=== PATIENT | male | born 2000 | race Caucasian/White ===

== ENCOUNTER 2021-03-24 15:59 | Outpatient (REF) | payer SELFPAY | END 2021-03-24 16:00 | disposition home or self-care (01) | LOC: HO.LAB 15:59 | PROVIDERS: Visit Provider Internal Medicine | DX: Z13.89 Encounter for screening for other disorder (principal) ==

== ENCOUNTER 2022-07-03 03:44 | Emergency (ER) | payer OTHER, SELFPAY ==
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
[2022-07-03 03:55] VITALS: BP 129/55; PULSE 113; PULSE 143; RESP 16; TEMP 37; O2SAT 92; O2SAT 97; BMI 22.3
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
[2022-07-03 09:24] VITALS: BP 102/56; PULSE 82; RESP 12; TEMP 37.2; O2SAT 99
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
== END 2022-07-03 10:05 | disposition home or self-care (01) ==
PROVIDERS: Emergency Provider Emergency Medicine; PCP Pediatrics
DX: S02.40DA Maxillary fracture, left side, initial encounter for closed fracture (principal); R51.9 Headache, unspecified; M54.2 Cervicalgia; Y04.2XXA Assault by strike against or bumped into by another person, initial encounter; Y93.9 Activity, unspecified; Y92.410 Unspecified street and highway as the place of occurrence of the external cause; Y99.9 Unspecified external cause status
CPT/HCPCS: 70450; 70486; 72125; 99284

== ENCOUNTER 2023-09-04 16:40 | Emergency (ER) | payer OTHER, SELFPAY ==
--- NOTE | ~2023-09-04 | XR_ITS ---
EXAMINATION: X-RAY LEFT ANKLE AND LEFT FOOT CLINICAL INDICATION: Pain after skiing. COMPARISON: None. TECHNIQUE: 2 views of the left ankle and 3 views of the left foot. FINDINGS: No acute fracture or subluxation. No unexpected radiopaque foreign bodies. Normal soft tissues. XR/XR ankle LT min 3V IMPRESSION: Normal radiographic examination of the left ankle and left foot.
--- NOTE | ~2023-09-04 | XR_ITS ---
EXAMINATION: X-RAY LEFT ANKLE AND LEFT FOOT CLINICAL INDICATION: Pain after skiing. COMPARISON: None. TECHNIQUE: 2 views of the left ankle and 3 views of the left foot. FINDINGS: No acute fracture or subluxation. No unexpected radiopaque foreign bodies. Normal soft tissues. XR/XR foot LT 2V IMPRESSION: Normal radiographic examination of the left ankle and left foot.
--- NOTE | ~2023-09-04 | XR_ITS ---
EXAMINATION: XR KNEE, LEFT CLINICAL INFORMATION: Lateral knee pain after skiing. COMPARISON: None available. TECHNIQUE: Four views of the left knee. FINDINGS: No fracture or joint effusion. Alignment is anatomic. Joint spaces are maintained. No abnormal soft tissue calcification. XR/XR knee LT 3V IMPRESSION: Normal left knee.
[2023-09-04 17:23] VITALS: BP 128/76; PULSE 74; RESP 16; TEMP 36.6; O2SAT 99; BMI 28.3
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
== END 2023-09-04 19:31 | disposition home or self-care (01) ==
PROVIDERS: Emergency Provider Internal Medicine
DX: S83.92XA Sprain of unspecified site of left knee, initial encounter (principal); Y93.23 Activity, snow (alpine) (downhill) skiing, snowboarding, sledding, tobogganing and snow tubing; Y92.89 Other specified places as the place of occurrence of the external cause; Y99.9 Unspecified external cause status; M25.562 Pain in left knee; M25.572 Pain in left ankle and joints of left foot
CPT/HCPCS: 73562; 73610; 73620; 99282; 99283

== ENCOUNTER 2024-03-22 00:07 | Emergency (ER) | payer OTHER, SELFPAY ==
[2024-03-22 00:13] VITALS: BP 123/57; PULSE 82; RESP 18; TEMP 37.1; O2SAT 96; BMI 28.9
--- NOTE | 2024-03-22 00:33 | ED.SKABFB ---
HPI - Skin/Abscess/Foreign Bdy General Chief complaint: Skin/Abscess/Foreign Body Stated complaint: cyst/abscess? Time Seen by Provider: 03/22/24 00:21 Source: patient Mode of arrival: ambulatory Limitations: no limitations History of Present Illness ED Provider: Dr. Paula Davenport HPI narrative: Patient comes emergency room complaining of an abscess and cellulitis in the inner aspect of the left eye. Patient states that for 3 days he has been seeing that erythema keeps spreading. Patient denies fever chills. Patient tried popping the pimple, was able to express pus Related Data Previous Rx's ?Medication ?Instructions ?Recorded amoxicillin 875 mg-potassium 1 tab PO Q12H #20 tabs 07/03/22 clavulanate 125 mg tablet cephalexin 500 mg capsule 500 mg PO BID #14 caps 03/22/24 doxycycline hyclate 100 mg capsule 100 mg PO BID #14 caps 03/22/24 ibuprofen 600 mg tablet 600 mg PO TID PRN fever or pain 03/22/24 #14 tabs Allergies Allergy/AdvReac Type Severity Reaction Status Date / Time No Known Allergies Allergy Verified 03/22/24 00:14 [No Known Allergies*] Review of Systems Review of Systems: Constitutional : No Weight loss, No Fever, No Chills, No Night Sweats, No Fatigue, No Malaise ENT/Mouth : No Hearing loss, No Ear Pain, No Nasal Congestion, No Sinus Pain, No Hoarseness, No sore throat, No Rhinorrhea, No Swallowing Difficulty Eyes: No Eye Pain, No Swelling, No Redness, No Foreign Body, No Discharge, No Vision Changes Cardiovascular : No Chest Pain, No SOB, No Dyspnea on Exertion, No Orthopnea, No Edema, No Palpitations Respiratory : No Cough, No Sputum, No Wheezing, No Smoke Exposure, No Dyspnea Gastrointestinal : No Nausea, No Vomiting, No Diarrhea, No Constipation, No abdominal Pain, No Hematochezia, No Melena Genitourinary : no irregular bleeding, No Dysuria, No Urinary Frequency, No Hematuria, No Urinary Incontinence, No Urgency, No Flank Pain, No Urinary Flow Changes, No Hesitancy Musculoskeletal : No joint pain, No Myalgias, No Joint Swelling Skin : Complaining of skin erythema and an infected pimple on the inner aspect of the left Neuro : No Weakness, No Numbness, No Paresthesias, No Loss of Consciousness, No Dizziness, No Headache Psych : No Anxiety/Panic, No Depression, No SI/HI/AH/VH, No Social Issues, Heme/Lymph: No Bruising, No Bleeding,No Lymphadenopathy Endocrine : No Polyuria, No Polydipsia, No Temperature Intolerance Physical Exam Vital Signs: Vital Signs: Last Vital Signs Temp 98.8 F 03/22/24 00:13 Pulse 82 03/22/24 00:13 Resp 18 03/22/24 00:13 BP 123/57 L 03/22/24 00:13 Pulse Ox 96 03/22/24 00:13 O2 Del Method Room Air 03/22/24 00:13 BMI result Body Mass Index 28.9 Const: Other: Appearance: Alert. Oriented X3. No acute distress. Eyes: Pupils equal, round and reactive to light. ENT: Pharynx normal. Neck: Normal inspection. Neck supple. No lymph nodes noted. No crepitus CVS: Normal heart rate and rhythm. Pulses normal. Normal S1 and S2 Respiratory: No respiratory distress. Breath sounds normal. No Wheezing. No rales Abdomen: Soft and nontender. No rigidity. No distention. Skin: Skin warm and dry. Normal skin color. Normal skin turgor. On the left inner thigh, there are 2 pimples, 1 is already healing, 1 is covered by an eschar and has surrounding erythema Extremities: No lower extremity edema. No Lacerations. No Rash Neuro: Oriented X 3. No motor deficit. No sensory deficit. Moving all extremities. No slurred speech. CN 2 through 12 grossly intact Psych: calm, cooperative, normal affect Medical Decision Making Medical Decision Making MDM Narrative: With an 18 gauge needle, the eschar was on pathak, small amount of pus was expressed. Patient's swelling or erythema. -patient was given the 1st dose of antibiotics here in the emergency room, doxycycline and Keflex Discharge Plan Discharge Clinical Impression: Cellulitis Patient Disposition: Home, Self-Care Instructions: Cellulitis (ED), Warm Compress or Soak (ED) Additional Instructions: Please follow-up with your primary care physician tomorrow. If you have any worsening or new symptoms, please return to the emergency room or call 911 Prescriptions: New cephalexin 500 mg capsule 500 mg PO BID Qty: 14 0RF doxycycline hyclate 100 mg capsule 100 mg PO BID Qty: 14 0RF ibuprofen 600 mg tablet 600 mg PO TID PRN (Reason: fever or pain) Qty: 14 0RF No Action amoxicillin-pot clavulanate 875-125 mg tablet 1 tab PO Q12H Qty: 20 0RF Print Language: Citizen [place]
[2024-03-22] MEDS: Doxycycline Monohydrate 100 MG CAPSULE PO (00:55)
[2024-03-22] MEDS: cephALEXin 500 MG CAPSULE PO (00:55)
[2024-03-22 01:37] VITALS: BP 110/68; PULSE 69; RESP 18; TEMP 37.1; O2SAT 97
== END 2024-03-22 00:57 | disposition home or self-care (01) ==
PROVIDERS: Emergency Provider Emergency Medicine
DX: H05.012 Cellulitis of left orbit (principal); H44.002 Unspecified purulent endophthalmitis, left eye
CPT/HCPCS: 99283

== ENCOUNTER 2024-12-27 08:42 | Day surgery (SDC) | payer SELFPAY ==
[2024-12-27] VITALS (12 sets, daily range): BP systolic 101–142; BP diastolic 38–78; PULSE 57–107; RESP 15–20; TEMP 36–36.9; O2SAT 93–98; BMI 26.7
--- NOTE | ~2024-12-27 | US_ITS ---
EXAMINATION: US SCROTUM WITH DOPPLER COMPLETE HISTORY: acute onset R sided testicular pain. COMPARISON: There are no prior studies for comparison. FINDINGS: Real-time grayscale ultrasound imaging of the scrotum was performed. RIGHT TESTICLE: The right testis measures 3.6 x 2.6 x 2.3 cm and demonstrates mildly heterogeneous echotexture. No masses are seen. No color or pulsed Doppler flow could be documented in the right testis. Findings are consistent with torsion. RIGHT EPIDIDYMIS: The right epididymis is enlarged and no vascular flow can be documented. Findings are consistent with torsion. LEFT TESTICLE: The left testis measures 3.7 x 1.6 x 2.2 cm and demonstrates normal homogeneous echotexture. No masses are seen. The left testis demonstrates normal color Doppler flow. LEFT EPIDIDYMIS: Normal in size, shape, and vascularity. VARICOCELE: None. HYDROCELE: No significant hydrocele is seen. OTHER COMMENTS: None. US/US scrotum doppler IMPRESSION: Findings consistent with torsion of the right testis and epididymis without documented vascular flow. Findings were discussed with TEGAN Watts in the emergency room on 12/27/2024 at 10:16 AM. Electronically signed by: Mil Sales MD 12/27/2024 10:19 AM EDT
--- NOTE | ~2024-12-27 | US_ITS ---
EXAMINATION: US SCROTUM WITH DOPPLER COMPLETE HISTORY: acute onset R sided testicular pain. COMPARISON: There are no prior studies for comparison. FINDINGS: Real-time grayscale ultrasound imaging of the scrotum was performed. RIGHT TESTICLE: The right testis measures 3.6 x 2.6 x 2.3 cm and demonstrates mildly heterogeneous echotexture. No masses are seen. No color or pulsed Doppler flow could be documented in the right testis. Findings are consistent with torsion. RIGHT EPIDIDYMIS: The right epididymis is enlarged and no vascular flow can be documented. Findings are consistent with torsion. LEFT TESTICLE: The left testis measures 3.7 x 1.6 x 2.2 cm and demonstrates normal homogeneous echotexture. No masses are seen. The left testis demonstrates normal color Doppler flow. LEFT EPIDIDYMIS: Normal in size, shape, and vascularity. VARICOCELE: None. HYDROCELE: No significant hydrocele is seen. OTHER COMMENTS: None. US/US scrotum IMPRESSION: Findings consistent with torsion of the right testis and epididymis without documented vascular flow. Findings were discussed with TEGAN Watts in the emergency room on 12/27/2024 at 10:16 AM. Electronically signed by: Mil Sales MD 12/27/2024 10:19 AM EDT
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
[2024-12-27 09:06] LABS: MANUAL DIFF FLAG NO
[2024-12-27 09:10] LABS: Basophils Percent Auto 0.4 % (0-2); Eosinophils Absolute Auto 0.3 X10*3/uL (0.0-0.4); Eosinophils Percent Auto 3.8 % (0-4); Hematocrit 42.5 % (42.0-52.0); Hemoglobin 14.7 g/dl (14.0-18.0); Imm Gran Abs Auto 0.01 X10*3/uL (0.00-0.03); Imm Gran Pct Auto 0.1 % (0.0-0.4); Lymphocytes Absolute Auto 2.3 X10*3/uL (1.2-4.9); Mean Corpuscular HGB Conc 34.6 g/dl (31.0-36.0); Mean Corpuscular Hemoglobin 29.4 pg (27.0-33.0); Mean Platelet Volume 9.9 fL (9.4-12.4); Monocytes Absolute Auto 0.9 X10*3/uL (0.1-1.2); Monocytes Percent Auto 10.7 % (2-11); Neutrophils Absolute Auto 4.6 x10*3/uL (2.0-8.3); Platelet Count 203 X10*3/uL (160-400); Red Cell Distribution Width 12.8 % (11.0-16.0); White Blood Count 8.1 X10*3/uL (4.8-10.8)
--- NOTE | 2024-12-27 09:20 | ED.MALEGU ---
HPI - Male Genitourinary General Chief complaint: Urogenital-Male Stated complaint: Torsion Time Seen by Provider: 12/27/24 08:55 Source: patient Mode of arrival: ambulatory Limitations: no limitations History of Present Illness ED Provider: CHAYA GAONA PA-C HPI Narrative: 24-year-old male with pmhx significant for cryptorchidism presents to the ED today for evaluation of acute onset right testicular pain at 0800 this morning. He states pain began while he was lying in bed on his left side. Pain has been severe since onset and will radiate up into his abdomen. No history of similar. No urinary sx. No vomiting. Patient tells me he has a history of undescended testicles . Denies ever having a procedure such as orchiopexy to correct this. Related Data Previous Rx's ?Medication ?Instructions ?Recorded amoxicillin 875 mg-potassium 1 tab PO Q12H #20 tabs 07/03/22 clavulanate 125 mg tablet cephalexin 500 mg capsule 500 mg PO BID #14 caps 03/22/24 doxycycline hyclate 100 mg capsule 100 mg PO BID #14 caps 03/22/24 ibuprofen 600 mg tablet 600 mg PO TID PRN fever or pain 03/22/24 #14 tabs Allergies Allergy/AdvReac Type Severity Reaction Status Date / Time No Known Allergies Allergy Verified 12/27/24 08:49 [No Known Allergies*] Review of Systems Review of Systems: Yes all other systems are reviewed and are negative PMFSH Past Medical History Attestation statement: The following information was validated with the patient. Source: old records reviewed and nursing notes reviewed Medical History (Updated 12/27/24 @ 11:05 by Katerina Botello RN) Hypospadias Surgical History (Updated 12/27/24 @ 11:03 by Katerina Botello RN) H/O wisdom tooth extraction Social History Social History Alcohol intake: current Alcohol intake frequency: 0-2 drinks per day Alcohol type: hard liquor Comment: Dr. Franklin Patient Tobacco Use Status: Current everyday Tobacco user Substance Use Type: Marijuana Physical Exam Vital Signs: Vital Signs: Last Vital Signs Temp 97.4 F 12/27/24 11:09 Pulse 57 12/27/24 11:09 Resp 16 12/27/24 11:09 BP 111/61 12/27/24 11:09 Pulse Ox 98 12/27/24 11:09 O2 Del Method Room Air 12/27/24 11:09 BMI result Body Mass Index 26.7 Hypertensive, vitals otherwise WNL. Afebrile. General: Uncomfortable appearing, in squatting position on bed Skin: Warm, dry, intact. No rashes or lesions. Head: Normocephalic, atraumatic. EENT: Hearing is intact b/l. Conjunctiva clear. PERRLA. EOM intact. Moist mucous membranes.? Cardiac: Chest wall symmetric. RRR Lungs: Normal respiratory effort without accessory muscle use. CTA bilaterally Abdomen: Soft, non-tender, non-distended. No rebound tenderness or guarding. Positive BS x4. : +high-riding right testicle, firm to palpation. Extremely tender to palpation. Palpating right testicle and uses pain to abdomen. Left testicle appears hypoplastic, smaller than right. Ext: Upper and lower extremities atraumatic, without tenderness, deformity, swelling or erythema Neuro: AOx3. Normal speech. Ambulating with steady gait. Psych: Appropriate mood and affect. Responds appropriately to questions. Course Course Course Narrative: 1028 -- CBC without leukocytosis or left shift. No anemia. H&H stable. Chemistry without acute electrolyte abnormality requiring intervention. BUN slightly elevated to 21 with normal creatinine. Normal liver function. Urinalysis and CT/NG testing pending. > I was called to bedside by archives technician for concern of torsion. She did not appreciate any blood flow to the right testes when compared to the left. I did inform my attending Dr. Gardner. You have both evaluated patient at bedside. My attending attempted to de torso testes however was concerned that the cord still felt twisted. Repeat ultrasound performed, still no blood flow to right testes. I expedited ultrasound read. I discussed with radiologist, Dr. Sales who states that both right testes and right epididymis are torsed. I reached out to Dr. Nation who will be taking patient to OR for de-torsion. Patient is agreeable. > patient reported brief resolution of pain after receiving morphine. Pain has now returned. Dilaudid and Zofran ordered. Medications Administered Discontinued Medications Generic Name Dose Route Start Last Admin Trade Name Freq PRN Reason Stop Dose Admin Hydromorphone HCl 0.5 mg 12/27/24 10:22 12/27/24 10:35 Hydromorphone Hcl 0.5 Mg/0.5 Ml Syringe IVPUSH 12/27/24 10:23 0.5 mg ONCE ONE Administration Protocol Morphine Sulfate 4 mg 12/27/24 09:21 12/27/24 09:30 Morphine Sulfate 4 Mg/Ml Cartridge IVPUSH 12/27/24 09:22 4 mg ONCE ONE Administration Protocol Ondansetron HCl 4 mg 12/27/24 10:27 12/27/24 10:35 Ondansetron Hcl 4 Mg/2 Ml Vial IVPUSH 12/27/24 10:28 4 mg ONCE ONE Administration Medical Decision Making Medical Decision Making [facility] Narrative: 24-year-old male with pmhx significant for cryptorchidism presents to the ED today for evaluation of acute onset right testicular pain at 0800 this morning. Hypertensive, vitals otherwise WNL. He is extremely uncomfortable appearing, squatting on the bed on my initial examination. On exam, high-riding right testicle, firm to palpation. Extremely tender to palpation. Palpating right testicle and uses pain to abdomen. Left testicle appears hypoplastic, smaller than right. Differential diagnosis includes testicular torsion, orchitis, epididymitis, hernia, urinary tract infection, STD Plan for basic labs, UA, CT/NG, testicular ultrasound, pain control and re-evaluation. Differential Diagnosis Differential Diagnoses: The differential diagnosis associated with the presentation includes as above. Admission/Observation Consideration of admission/observation: Escalation of care including admission/observation considered Patient will be admitted to urology service with plan for OR to detorse right testis Consult Healthcare Provider Management of the patient was discussed with: Full Service Vending Driver (urologist - dr. nation) Lab Data [facility] Lab Attestation statement: I reviewed the patient's lab results. as above. 12/27/24 09:02 12/27/24 09:02 Labs: Lab Results 12/27/24 Range/Units 09:02 WBC 8.1 (4.8-10.8) X10*3/uL RBC 5.00 (4.60-5.80) X10*6/uL Hgb 14.7 (14.0-18.0) g/dl Hct 42.5 (42.0-52.0) % MCV 85.0 (80.0-98.0) fL MCH 29.4 (27.0-33.0) pg MCHC 34.6 (31.0-36.0) g/dl RDW 12.8 (11.0-16.0) % Plt Count 203 (160-400) X10*3/uL MPV 9.9 (9.4-12.4) fL Immature Gran % (Auto) 0.1 (0.0-0.4) % Neut % (Auto) 57.0 (45-73) % Lymph % (Auto) 28.0 (20-40) % [place] % (Auto) 10.7 (2-11) % Eos % (Auto) 3.8 (0-4) % Baso % (Auto) 0.4 (0-2) % Lymph # (Auto) 2.3 (1.2-4.9) X10*3/uL [place] # (Auto) 0.9 (0.1-1.2) X10*3/uL Eos # (Auto) 0.3 (0.0-0.4) X10*3/uL Baso # (Auto) 0.0 (0.0-0.2) X10*3/uL Abs Immat Gran (auto) 0.01 (0.00-0.03) X10*3/uL Absolute Neuts (auto) 4.6 (2.0-8.3) x10*3/uL Absolute Nucleated RBC 0.000 (0.0-0.012) X10*3/uL Nucleated RBC % (auto) 0.0 (0.0-0.2) /100WBC Sodium 141 (135-145) mmol/L Potassium 3.9 (3.3-5.1) mmol/L Chloride 107 (96-108) mmol/L Carbon Dioxide 26 (22-29) mmol/L Anion Gap 12 (12-20) BUN 21 H (9-16) mg/dL Creatinine 0.88 (0.5-1.4) mg/dL Estim Creat Clear Calc 137.8 Estimated GFR > 60 Random Glucose 100 (60-115) mg/dL Calcium 9.2 (8.4-10.2) mg/dL Magnesium 1.9 (1.6-2.6) mg/dL Total Bilirubin 0.3 (0.0-1.0) mg/dL AST 20 (5-37) U/L ALT 22 (0-40) U/L Alkaline Phosphatase 61 (39-117) U/L Total Protein 7.2 (6.5-8.0) g/dL Albumin 4.4 (3.5-5.0) g/dL Independent Interpretation I performed an independent interpretation of an: Ultrasound Interpretation: US w/o arterial/ venous flow to R testicle Radiology Impression Discussion of test interpretation with radiology: I have reviewed the radiologist's reading. Radiologist Impression: Procedure(s): US scrotum doppler Accession Number(s): [id number] cc: Physician,None ; Chaya Gaona~ EXAMINATION: US SCROTUM WITH DOPPLER COMPLETE HISTORY: acute onset R sided testicular pain. COMPARISON: There are no prior studies for comparison. FINDINGS: Real-time grayscale ultrasound imaging of the scrotum was performed. RIGHT TESTICLE: The right testis measures 3.6 x 2.6 x 2.3 cm and demonstrates mildly heterogeneous echotexture. No masses are seen. No color or pulsed Doppler flow could be documented in the right testis. Findings are consistent with torsion. RIGHT EPIDIDYMIS: The right epididymis is enlarged and no vascular flow can be documented. Findings are consistent with torsion. LEFT TESTICLE: The left testis measures 3.7 x 1.6 x 2.2 cm and demonstrates normal homogeneous echotexture. No masses are seen. The left testis demonstrates normal color Doppler flow. LEFT EPIDIDYMIS: Normal in size, shape, and vascularity. VARICOCELE: None. HYDROCELE: No significant hydrocele is seen. OTHER COMMENTS: None. US/US scrotum doppler IMPRESSION: Findings consistent with torsion of the right testis and epididymis without documented vascular flow. Findings were discussed with TEGAN Watts in the emergency room on 12/27/2024 at 10:16 AM. Prescription Management I considered prescription management with: Pain Medication Social Determinants Patient?s care significantly limited by Social Determinants of Health including: Other Social Determinant of Health Critical Care Time Critical Care Time Critical Care Time: Yes Total Critical Care Time: 40 Attestation: Critical care time in the amount of 40 minutes has been provided to the patient in terms of direct patient care, frequent reevaluation, consultation with urologist, review and interpretation of medical data and results, and management of potentially life-threatening conditions. This is all outside of any medical procedures. Discharge Plan Discharge Clinical Impression: Right testicular torsion Patient Disposition: Admitted As Inpatient Interventions: Admission Worksheet (ED) Last Done: 12/27/24 10:54 Discharge Date/Time: 12/27/24 10:54
[2024-12-27 09:26] LABS: Alanine Aminotransferase 22 U/L (0-40); Albumin Level 4.4 g/dL (3.5-5.0); Alkaline Phosphatase 61 U/L (39-117); Anion Gap 12 (12-20); Aspartate Amino Transferase 20 U/L (5-37); Bilirubin Total 0.3 mg/dL (0.0-1.0); Blood Urea Nitrogen 21 mg/dL (9-16); Calcium 9.2 mg/dL (8.4-10.2); Carbon Dioxide 26 mmol/L (22-29); Chloride 107 mmol/L (96-108); Creatinine Clr Calc Pharmacy 137.8; Estimated Glomerular Filt Rate > 60; Glucose Random 100 mg/dL (60-115); Magnesium 1.9 mg/dL (1.6-2.6); Potassium 3.9 mmol/L (3.3-5.1); Sodium 141 mmol/L (135-145); Total Protein 7.2 g/dL (6.5-8.0)
[2024-12-27] MEDS: Morphine Sulfate 4 MG/ML CARTRIDGE IVPUSH (09:30)
[2024-12-27] MEDS: ondansetron HCL 4 MG/2 ML VIAL IVPUSH (10:35)
[2024-12-27] MEDS: HYDROmorphone HCl 0.5 MG/0.5 ML SYRINGE IVPUSH (10:35)
--- NOTE | 2024-12-27 10:51 | P.CNUR_ITS ---
History of Present Illness Consult details Consult date: 12/27/24 Narrative: CC: Testicular torsion 24-year-old male presents to emergency room with right onset testicular pain starting at 08:00 no prior history Extremely comfortable on exam Believes he may have had a prior cryptorchism with an orchidopexy as a child Hypoplastic left testicle on exam with high-riding right testicle Ultrasound no flow appreciated to right testicle Recommend operative exploration with orchidopexy right side Review of Systems 2 Constitutional: Constitutional: Reports as per HPI and Reports no additional constitutional complaints Cardiovascular: Cardiovascular: Reports as per HPI and Reports no additional cardiovascular complaints Respiratory: Respiratory: Reports as per HPI and Reports no additional respiratory complaints Gastrointestinal: Gastrointestinal: Reports as per HPI and Reports no additional gastrointestinal complaints Genitourinary: Genitourinary: Reports as per HPI Musculoskeletal: Musculoskeletal: Reports no additional musculoskeletal complaints and Reports as per HPI Neurologic: Reports system reviewed and no additional complaints, except as documented and Reports as per HPI [facility] Social History Social History Alcohol intake: current Alcohol intake frequency: 0-2 drinks per day Alcohol type: hard liquor Smoked in Last 30 Days: Yes Use of substances other than those prescribed or required for medical reasons: Yes Substance Use Type: Marijuana Advance Directives: No Advance Directives Information Provided: Yes Meds Allergies Allergy/AdvReac Type Severity Reaction Status Date / Time No Known Allergies Allergy Verified 12/27/24 08:49 [No Known Allergies*] Physical Exam 2 Vital Signs: Vital Signs: Last Vital Signs Temp 96.8 F 12/27/24 09:13 Pulse 78 12/27/24 09:13 Resp 20 12/27/24 10:35 BP 142/75 H 12/27/24 09:13 Pulse Ox 96 12/27/24 09:13 O2 Del Method Room Air 12/27/24 09:13 BMI result Body Mass Index 26.7 Const: General: cooperative, healthy appearing, comfortable and no acute distress Orientation/consciousness: patient oriented x3 HEENT: Face and sinus: Yes normal facial exam Mouth: moist mucous membranes Neck: Neck: Yes normal visual inspection, Yes full ROM and Yes trachea midline Chest: Chest palpation & inspection: normal inspection of the chest Resp: Effort & Inspection: normal respiratory effort, able to speak in complete sentences and no respiratory distress GI: Inspection: Yes normal to inspection Back/Spine/Pelvis: Cervical Spine: normal cervical lordosis Thoracic/Lumbar Spine: thoracic and lumbar spine normal to inspection Skin: General skin exam: no rashes or lesions noted Neuro: General: patient oriented x3, tone normal and moves all extremities Extrem: General: Yes normal to inspection and Yes capillary refill normal Results Labs 12/27/24 09:02 12/27/24 09:02 Labs: Abnormal lab results 12/27/24 Range/Units 09:02 BUN 21 H (9-16) mg/dL Short CBC 12/27/24 Range/Units 09:02 WBC 8.1 (4.8-10.8) X10*3/uL Hgb 14.7 (14.0-18.0) g/dl Hct 42.5 (42.0-52.0) % Plt Count 203 (160-400) X10*3/uL BMP 12/27/24 09:02 Sodium 141 Potassium 3.9 Chloride 107 Carbon Dioxide 26 BUN 21 H Creatinine 0.88 Calcium 9.2 Liver Function 12/27/24 Range/Units 09:02 Total Bilirubin 0.3 (0.0-1.0) mg/dL AST 20 (5-37) U/L ALT 22 (0-40) U/L Alkaline Phosphatase 61 (39-117) U/L Albumin 4.4 (3.5-5.0) g/dL All other labs normal. Assessment and Plan (1) Right testicular torsion: Status: Acute Plan Risks, benefits and alternatives to therapy were discussed. These include but are not limited to infection, bleeding, damage to local organs and tissues, need for further interventions. Anesthetic risks regarding cardiac arrhythmia, blood clots, and potential mortality were discussed. The patient understands the typical recovery time and the outpatient nature of the procedure. After consideration of these risks the patient gives full informed consent and they wish to move ahead with the procedure. - scrotal exploration with right testicular orchidopexy Procedures Date of Service Date of Service: 12/27/24
--- NOTE | 2024-12-27 11:10 | PC.NURSE ---
20g left ac 20g patent asymptomatic.
--- NOTE | 2024-12-27 11:54 | P.CONAN_ITS ---
HPI - Anesthesia Eval Consult details Narrative: testicular torsion PMFSH Active Problems Active Problems: All Active Problems Right testicular torsion (Acute) Past Medical History Medical History Hypospadias Family History Family history of problems with anesthesia: No Surgical History Surgical History H/O wisdom tooth extraction History of Problems with Anesthesia: No Social History Social History Alcohol intake: current Alcohol intake frequency: 0-2 drinks per day Alcohol type: hard liquor Comment: Dr. Franklin Patient Tobacco Use Status: Current everyday Tobacco user Substance Use Type: Marijuana Meds Allergies Allergy/AdvReac Type Severity Reaction Status Date / Time No Known Allergies Allergy Verified 12/27/24 08:49 [No Known Allergies*] Exam Height,Weight and Vital Signs: Height 5 ft 11 in Weight 86.8 kg Last Vital Signs Temp 97.4 F 12/27/24 11:09 Pulse 57 12/27/24 11:09 Resp 16 12/27/24 11:09 BP 111/61 12/27/24 11:09 Pulse Ox 98 12/27/24 11:09 O2 Del Method Room Air 12/27/24 11:09 Pertinent Lab Results Pertinent Lab Results: Laboratory Tests 12/27/24 09:02 WBC 8.1 RBC 5.00 Hgb 14.7 Hct 42.5 MCV 85.0 MCH 29.4 MCHC 34.6 RDW 12.8 Plt Count 203 MPV 9.9 Immature Gran % (Auto) 0.1 Neut % (Auto) 57.0 Lymph % (Auto) 28.0 [place] % (Auto) 10.7 Eos % (Auto) 3.8 Baso % (Auto) 0.4 Lymph # (Auto) 2.3 [place] # (Auto) 0.9 Eos # (Auto) 0.3 Baso # (Auto) 0.0 Abs Immat Gran (auto) 0.01 Absolute Neuts (auto) 4.6 Absolute Nucleated RBC 0.000 Nucleated RBC % (auto) 0.0 Sodium 141 Potassium 3.9 Chloride 107 Carbon Dioxide 26 Anion Gap 12 BUN 21 H Creatinine 0.88 Estim Creat Clear Calc 137.8 Estimated GFR > 60 Random Glucose 100 Calcium 9.2 Magnesium 1.9 Total Bilirubin 0.3 AST 20 ALT 22 Alkaline Phosphatase 61 Total Protein 7.2 Albumin 4.4 Airway Mallampati Class: II TM Dist: >3cm Neck ROM: Full Heart: rrr Lungs: cta Assessment and Plan Assessment Anesthesia Assessment: Anesthesia Plan Discussed and Chart Reviewed Final Anesthetic Review Family History of Problems with Anesthesia: No History of Problems with Anesthesia: No NPO: Yes ASA Class: II (vapes nicotine ) Final Preanesthetic Review: No Changes in Pt Med Stat, Meds/Allgs Chart Reviewed, Consent Obtained/Reviewed and Anes Risks/Benef Reviewed Patient Risk: Low Procedure Risk: Low Anesthetic Plan Anesthetic Plan: GA Disposition: Standard PACU
--- NOTE | 2024-12-27 12:13 | MHC.SHP ---
Pre-Procedural Eval Section A - 24 Hr Update-Section A only Date of Service: 12/27/24 The patient is an INPATIENT: Yes Changes since office visit: No Cold of Flu in the past 2 weeks, No New Medical Problems, No Changes in Medication and No Patient answered all questions The patient has been examined within 24 hours of the surgical procedure. The History & Physical has been completed within 30 days and I have reviewed it.: Yes Section B - Complete if H&P > 30 days Chief Complaint: Torsion Details of Present Illness: right sided testicle torsion on US Relevant Family History (Specify if Yes): No Relevant Social History: None Present Medications: see Short Stay Collaborative assessment Medical History: No relevant PMH History of Previous Operations: No relevant previous surgery Allergies: Allergies Allergy/AdvReac Type Severity Reaction Status Date / Time No Known Allergies Allergy Verified 12/27/24 08:49 [No Known Allergies*] Review of Systems Sugical H&P ROS: Negative: Constitution, Cardiovascular, Respiratory, Neurological, Psychiatric, Hem-Onc, Allergic/Immunologic, Gastrointestinal, Genitourinary, Musculoskeletal, Integumentary, Endocrine and Eyes/Ears/Nose/Throat Exam Surgical H&P Exam: Normal: HEENT, Normal: Heart, Normal: Lungs, Normal: Extremities, Normal: Abdomen, Normal: Skin and Normal: Neurological Plan Diagnosis/Plan: Unchanged (scrotal exploration) I have reviewed the history and physical and performed a pertinent physical examination on my patient. No changes have occurred unless specified. Time Spent With Patient Time: Total time managing care of this patient today ____ minutes.
[2024-12-27] MEDS: ceFAZolin Sodium/Dextrose,Iso 2 GM/50 ML PIGGYBACK IV (12:30)
--- NOTE | 2024-12-27 19:16 | W.PM.OPN ---
Operative Note Operative Note Date of Service: 12/27/24 Narrative: PreOperative Diagnosis: Right testicular torsion Post Operative Diagnosis: Right testicular torsion Procedure: Scrotal exploration with detorsion right testicle and bilateral orchidopexy Surgeon: Dr Meliton Mchugh Anesthesia: Genital Indications for procedure: Right testicular torsion Torsion on ultrasound no flow Procedure: After informed consent was verified the patient was brought to the operating room and placed in a supine position. Anesthesia was administered per protocol. The patient was prepped and draped in a sterile fashion. Safety pause time-out was performed. Antibiotics being given. Midline incision marked at median raphe. Local anesthesia infiltrated subcutaneously. Incision made through skin and subcutaneous tissue. Sharp dissection taken down onto the right testicle. Right testicle was exposed and delivered. Testicle was blue consistent with 360 degree torsion. Initially testicle looked borderline viable. Testicle was released and covered with a warm sponge. Gradually it became pink and the venous congestion around the epididymis and in the cord veins decompressed. The testicle was placed back inside the sac. Three point fixation performed using 3-0 Vicryl. Medial, lateral, inferior components of the testicle were attached to the underlying tissue. Testicular sac was closed with running 3-0 Vicryl suture. Attention was then directed to the left side in a similar procedure was performed. Left side was delivered it had not been torsed. Was then pexed back into the tunic. Tunica vaginalis was then closed. A 2nd layer of subcutaneous tissue was closed using Vicryl. Interrupted chromic sutures were placed. Patient tolerated the procedure well was extubated in the operating room and transferred in a stable condition. Pathology: Drains:
== END 2024-12-27 14:58 | disposition home or self-care (01) ==
LOC: HO.ED 10:32 → HO.SSS 10:38
PROVIDERS: Physician Assistant Medical; Emergency Provider Emergency Medicine; Visit Provider Urology
PROC: (CPT 55110; principal; 2024-12-27 12:00)
DX: N44.00 Torsion of testis, unspecified (principal); N50.811 Right testicular pain
CPT/HCPCS: 54600; 36415; 76870; 80053; 83735; 85025; 93975; 96374; 96375; 99285; J0330; J0690; J1100; J1171; J2003; J2270; J2405; J2704; J2795; J3010

== ENCOUNTER → 2024-12-27 08:56 | Outpatient (BNV) | payer MEDICAID, SELFPAY | PROVIDERS: Emergency Provider Emergency Medicine; Visit Provider Radiology Diagnostic Radiology | DX: N44.00 Torsion of testis, unspecified (principal); N50.811 Right testicular pain | CPT/HCPCS: 76870; 93975 ==

== ENCOUNTER → 2024-12-27 10:37 | Outpatient (BNV) | payer MEDICAID, SELFPAY | PROVIDERS: Emergency Provider Emergency Medicine; Visit Provider Urology | DX: N44.00 Torsion of testis, unspecified (principal) | CPT/HCPCS: 54600; 99285 ==

== ENCOUNTER 2025-01-01 16:42 | Emergency (ER) | payer MEDICAID, SELFPAY ==
--- NOTE | ~2025-01-01 | US_ITS ---
CLINICAL HISTORY: right test pain, recent torsion US Scrotum with Doppler Comparison: US/[place]/SR - US SCROTUM DOPPLER - 12/27/24 09:13 EDT Findings: Right testicle mildly heterogeneous , 3.3 x 1.5 x 2.7 cm. Left testicle normal echotexture, 3.0 x 1.8 x 2.7 cm. Normal color flow and arterial/venous spectral tracing of both testicles. Normal epididymides. No varicoceles. Small right-sided hydrocele. There is a large complex fluid collection right of midline measuring 7.5 x 4.7 x 5.5 cm in size IMPRESSION: 1. 7.5 cm complex fluid collection right of midline likely representing a hematoma. 2. Interval resolution of right-sided testicular torsion. 3. Small right-sided hydrocele. This document has been electronically signed by: Sarita Page MD on 01/01/2025 18:45:24
--- NOTE | ~2025-01-01 | US_ITS ---
CLINICAL HISTORY: right test pain, recent torsion US Scrotum with Doppler Comparison: US/[place]/SR - US SCROTUM DOPPLER - 12/27/24 09:13 EDT Findings: Right testicle mildly heterogeneous , 3.3 x 1.5 x 2.7 cm. Left testicle normal echotexture, 3.0 x 1.8 x 2.7 cm. Normal color flow and arterial/venous spectral tracing of both testicles. Normal epididymides. No varicoceles. Small right-sided hydrocele. There is a large complex fluid collection right of midline measuring 7.5 x 4.7 x 5.5 cm in size IMPRESSION: 1. 7.5 cm complex fluid collection right of midline likely representing a hematoma. 2. Interval resolution of right-sided testicular torsion. 3. Small right-sided hydrocele. This document has been electronically signed by: Sarita Page MD on 01/01/2025 18:45:24
[2025-01-01 17:06] VITALS: BP 143/62; PULSE 70; RESP 16; TEMP 36.7; O2SAT 97; BMI 26.8
--- NOTE | 2025-01-01 17:45 | ED.MALEGU ---
HPI - Male Genitourinary General Chief complaint: Urogenital-Male Stated complaint: right side pain after surgery 10/27 Time Seen by Provider: 01/01/25 17:45 Source: patient Mode of arrival: ambulatory Limitations: no limitations History of Present Illness ED Provider: HPI Narrative: patient status post right testicle torsion on 12/27 status post surgery comes here as he woke up and noticed increased swelling and pain in the right side of the scrotum which was not there before no fever no chills Related Data Previous Rx's ?Medication ?Instructions ?Recorded amoxicillin 875 mg-potassium 1 tab PO Q12H #20 tabs 07/03/22 clavulanate 125 mg tablet cephalexin 500 mg capsule 500 mg PO BID #14 caps 03/22/24 doxycycline hyclate 100 mg capsule 100 mg PO BID #14 caps 03/22/24 ibuprofen 600 mg tablet 600 mg PO TID PRN fever or pain 03/22/24 #14 tabs naproxen 500 mg tablet 500 mg PO BID PRN pain 7 days #14 12/27/24 tabs oxycodone 5 mg tablet 5 mg PO Q8H PRN pain 3 days #8 tabs 12/27/24 Allergies Allergy/AdvReac Type Severity Reaction Status Date / Time No Known Allergies Allergy Verified 01/01/25 17:07 [No Known Allergies*] Review of Systems Review of Systems: Yes all other systems are reviewed and are negative PMFSH Past Medical History Medical History Hypospadias Surgical History H/O wisdom tooth extraction Social History Social History Alcohol intake: current Alcohol intake frequency: 0-2 drinks per day Alcohol type: hard liquor Comment: Dr. Franklin Patient Tobacco Use Status: Current everyday Tobacco user Smoked in Last 30 Days: No Use of substances other than those prescribed or required for medical reasons: No Substance Use Type: Marijuana Advance Directives: No Advance Directives Information Provided: No Do you have a plan to hurt others: No Plan Physical Exam Vital Signs: Vital Signs: Last Vital Signs Temp 97.9 F 01/01/25 20:00 Pulse 84 01/01/25 20:00 Resp 16 01/01/25 20:00 BP 123/49 L 01/01/25 20:00 Pulse Ox 97 01/01/25 20:00 O2 Del Method Room Air 01/01/25 20:00 BMI result Body Mass Index 26.8 Appearance: Alert. Oriented X3. No acute distress. Eyes: PERRLA, No Nystagmus ENT: Pharynx normal. Oral Mucosa moist Neck: Normal inspection. Neck supple. CVS: Normal heart rate and rhythm. Pulses normal. Respiratory: No respiratory distress. Equal air entry bilateral, no wheezing/rales/rhonchi Abdomen: Soft and nontender. Bowel sounds are present, no mass palpable, no CVA tenderness : Diffuse ecchymosis and scrotum and suprapubic area fluid collection right scrotum transillumination test positive Skin: Skin warm and dry. Normal skin color. Normal skin turgor. Extremities: No lower extremity edema. No calf tenderness Neuro: Oriented X 3. Medical Decision Making Medical Decision Making MDM Narrative: patient with postop scrotal hematoma sickle case discussed Dr. Mchugh advised supportive treatment follow up as outpatient Independent Interpretation I performed an independent interpretation of an: Ultrasound Radiology Impression Discussion of test interpretation with radiology: I have reviewed the radiologist's reading. Radiologist Impression: [place] [id number] Ultrasound Report Signed with Brenden Patient: Zane Singer MR#: [id number] : 2000 Acct:[id number] Age/Sex: 24 / M ADM Date: 01/01/25 Loc: .ED Attending Dr: Ordering Physician: Madalyn Gaona Date of Service: 01/01/25 Procedure(s): US scrotum doppler Accession Number(s): [id number] cc: Physician,Unknown ; Madalyn Gaona~ ADDENDUMThis document has been electronically signed by: Sarita Page MD on 01/01/2025 18:45:24 ADDENDUM: Receipt of this report by the clinical staff was confirmed with Dr. Palacio on January 01, 2025 19:04:00 EDT. This document has been electronically signed by: Berkley Ibarra on 01/01/2025 19:05:04 Addendum Dictated By: Sarita Page MD Addendum Signed By: <Electronically signed by Sarita Page MD in OV> 01/01/251905 Addendum Cosigned By: DD/ TD/TT: 01/01/25 CLINICAL HISTORY: right test pain, recent torsion US Scrotum with Doppler Comparison: US/MD/SR - US SCROTUM DOPPLER - 12/27/24 09:13 EDT Findings: Right testicle mildly heterogeneous , 3.3 x 1.5 x 2.7 cm. Left testicle normal echotexture, 3.0 x 1.8 x 2.7 cm. Normal color flow and arterial/venous spectral tracing of both testicles. Normal epididymides. No varicoceles. Small right-sided hydrocele. There is a large complex fluid collection right of midline measuring 7.5 x 4.7 x 5.5 cm in size IMPRESSION: 1. 7.5 cm complex fluid collection right of midline likely representing a hematoma. 2. Interval resolution of right-sided testicular torsion. 3. Small right-sided hydrocele. Discharge Plan Discharge Clinical Impression: Hematoma of scrotum Patient Disposition: Home, Self-Care Instructions: Hematoma (ED) Additional Instructions: your swelling of the right testicle is from postop hematoma which should get better with time avoid standing for long time ,avoid exertion Tylenol for pain follow up with urologist report to the ER if worsening of the swelling and pain Prescriptions: No Action amoxicillin-pot clavulanate 875-125 mg tablet 1 tab PO Q12H Qty: 20 0RF cephalexin 500 mg capsule 500 mg PO BID Qty: 14 0RF doxycycline hyclate 100 mg capsule 100 mg PO BID Qty: 14 0RF ibuprofen 600 mg tablet 600 mg PO TID PRN (Reason: fever or pain) Qty: 14 0RF naproxen 500 mg tablet 500 mg PO BID PRN (Reason: pain) 7 Days Qty: 14 0RF oxycodone 5 mg tablet 5 mg PO Q8H PRN (Reason: pain) 3 Days Qty: 8 0RF Rx Instructions: Partial Fill upon patient request. Interventions: ED Discharge Assessment Last Done: 01/01/25 20:00 Discharge Date/Time: 01/01/25 20:02 Print Language: Guatemalan
[2025-01-01 19:34] VITALS: BP 123/49; PULSE 84; RESP 16; TEMP 36.6; O2SAT 97
[2025-01-01 20:00] VITALS: BP 123/49; PULSE 84; RESP 16; TEMP 36.6; O2SAT 97
== END 2025-01-01 20:02 | disposition home or self-care (01) ==
PROVIDERS: Emergency Provider Internal Medicine
DX: S30.22XA Contusion of scrotum and testes, initial encounter (principal); X58.XXXA Exposure to other specified factors, initial encounter; N50.82 Scrotal pain; F17.210 Nicotine dependence, cigarettes, uncomplicated; Y93.9 Activity, unspecified; Y92.9 Unspecified place or not applicable; Y99.9 Unspecified external cause status
CPT/HCPCS: 76870; 93975; 99284

== ENCOUNTER → 2025-01-01 17:07 | Outpatient (BNV) | payer MEDICAID, SELFPAY | PROVIDERS: Emergency Provider Internal Medicine; Visit Provider Radiology Diagnostic Radiology | DX: N43.3 Hydrocele, unspecified (principal) | CPT/HCPCS: 93975 ==

== ENCOUNTER 2025-01-06 02:32 | Emergency (ER) | payer MEDICAID, SELFPAY ==
[2025-01-06 02:33] VITALS: BP 117/65; PULSE 76; RESP 20; TEMP 36.7; O2SAT 97; BMI 26.5
--- NOTE | 2025-01-06 02:40 | ED_ITS ---
HPI - Male Genitourinary General Chief complaint: Urogenital-Male Stated complaint: genital issue Time Seen by Provider: 01/06/25 02:40 Source: patient Mode of arrival: ambulatory Limitations: no limitations History of Present Illness ED Provider: HPI Narrative: Patient is status post testicular torsion surgery on 12/27 was seen here on 01/01 for scrotal hematoma postsurgical comes here as hematomas still there but the swelling and suprapubic area as decreased patient was advised to follow up with urologist Related Data Previous Rx's ?Medication ?Instructions ?Recorded amoxicillin 875 mg-potassium 1 tab PO Q12H #20 tabs 07/03/22 clavulanate 125 mg tablet cephalexin 500 mg capsule 500 mg PO BID #14 caps 03/22/24 doxycycline hyclate 100 mg capsule 100 mg PO BID #14 caps 03/22/24 ibuprofen 600 mg tablet 600 mg PO TID PRN fever or pain 03/22/24 #14 tabs naproxen 500 mg tablet 500 mg PO BID PRN pain 7 days #14 12/27/24 tabs oxycodone 5 mg tablet 5 mg PO Q8H PRN pain 3 days #8 tabs 12/27/24 Allergies Allergy/AdvReac Type Severity Reaction Status Date / Time No Known Allergies Allergy Verified 01/06/25 02:35 [No Known Allergies*] Review of Systems Review of Systems: Yes all other systems are reviewed and are negative PMFSH Past Medical History Medical History Hypospadias Surgical History H/O wisdom tooth extraction Social History Social History Alcohol intake: current Alcohol intake frequency: 0-2 drinks per day Alcohol type: hard liquor Comment: Dr. Franklin Patient Tobacco Use Status: Current everyday Tobacco user Substance Use Type: Marijuana Advance Directives: No Advance Directives Information Provided: No Physical Exam Vital Signs: Vital Signs: Last Vital Signs Temp 98.1 F 01/06/25 02:33 Pulse 76 01/06/25 02:33 Resp 20 01/06/25 02:33 BP 117/65 01/06/25 02:33 Pulse Ox 97 01/06/25 02:33 O2 Del Method Room Air 01/06/25 02:33 BMI result Body Mass Index 26.5 Appearance: Alert. Oriented X3. No acute distress. Eyes: no pallor or icterus ENT: Pharynx normal Oral Mucosa moist tympanic membrane intact no erythema, Neck: Normal inspection. Neck supple. CVS: Normal heart rate and rhythm. Pulses normal. Respiratory: No respiratory distress. Equal air entry bilateral, no wheezing/rales/rhonchi Abd: soft, not tender : Medium size hematoma bilateral nose scrotum fluctuant suprapubic hematoma has decreased Skin: Skin warm and dry. Normal skin color. Normal skin turgor. Extremities: No lower extremity edema, no calf tenderness Neuro: Oriented X 3. Medical Decision Making Medical Decision Making [facility] Narrative: Scrotal hematoma post testicular surgery patient advised to follow up with urologist keep the scrotum elevated Discharge Plan Discharge Clinical Impression: Hematoma of scrotum Patient Disposition: Home, Self-Care Instructions: Hematoma (ED) Additional Instructions: Scrotal support as advised Follow with Dr. Mchugh in a.m. Prescriptions: No Action amoxicillin-pot clavulanate 875-125 mg tablet 1 tab PO Q12H Qty: 20 0RF cephalexin 500 mg capsule 500 mg PO BID Qty: 14 0RF doxycycline hyclate 100 mg capsule 100 mg PO BID Qty: 14 0RF ibuprofen 600 mg tablet 600 mg PO TID PRN (Reason: fever or pain) Qty: 14 0RF naproxen 500 mg tablet 500 mg PO BID PRN (Reason: pain) 7 Days Qty: 14 0RF oxycodone 5 mg tablet 5 mg PO Q8H PRN (Reason: pain) 3 Days Qty: 8 0RF Rx Instructions: Partial Fill upon patient request. Referrals: Meliton Mchugh MD [Physician] - 1 day Print Language: Martiniquais
[2025-01-06 03:05] VITALS: BP 117/65; PULSE 76; RESP 20; TEMP 36.7; O2SAT 97
== END 2025-01-06 03:05 | disposition home or self-care (01) ==
PROVIDERS: Emergency Provider Internal Medicine
DX: S30.22XA Contusion of scrotum and testes, initial encounter (principal); F17.210 Nicotine dependence, cigarettes, uncomplicated; X58.XXXA Exposure to other specified factors, initial encounter; Y93.9 Activity, unspecified; Y92.9 Unspecified place or not applicable; Y99.8 Other external cause status
CPT/HCPCS: 99282; 99283

== ENCOUNTER 2025-01-07 15:56 | Outpatient (AMB) | payer OTHER, SELFPAY ==
--- NOTE | 2025-01-07 16:03 | MHC.OFFVIS ---
Intake Visit Reasons: scrotal hematoma Intake Note: Patient is present for SCROTAL HEMATOMA Urology Medication:NONE Antibiotic Allergy:NONE Blood Thinner:NONE Photographic Enlarger Operator Required: No Allergies No Known Allergies [No Known Allergies*] Allergy (Verified 01/07/25 16:04) HPI Comments Details: Zane is a pleasant [place] male. He is seen for the following urologic conditions - scrotal hematoma Underwent scrotal exploration with bilateral orchidopexy for right testicular torsion 1 weeks ago Significant postprocedure delayed hematoma On examination has leakage of old hematoma from incision site In office Incision cleaned with Betadine Using small snaps area dilated to right side Significant old blood evacuated Provided antibiotics for 5 days PFSH Medical History Hypospadias Surgical History H/O wisdom tooth extraction Social History Alcohol intake: current Alcohol intake frequency: 0-2 drinks per day Alcohol type: hard liquor Comment: Dr. Franklin Patient Tobacco Use Status: Current everyday Tobacco user Substance Use Type: Marijuana Review of Systems Const Denies chills and Denies fever(s) Card Reports no additional complaints and Denies syncope Resp Denies cough GI Denies abdominal pain and Denies heartburn Reports as per HPI and Denies change in libido Neuro Denies syncope Psych Denies change in libido Endo Denies change in libido Physical Exam Const General: cooperative, healthy appearing, comfortable and no acute distress Orientation/consciousness: patient oriented x3 HEENT Face and sinus: Yes normal facial exam Mouth: moist mucous membranes Neck Neck: Yes normal visual inspection, Yes full ROM and Yes trachea midline Chest Chest palpation & inspection: normal inspection of the chest Resp Effort & Inspection: normal respiratory effort, able to speak in complete sentences and no respiratory distress GI Inspection: Yes normal to inspection Back/Spine/Pelvis Cervical Spine: normal cervical lordosis Thoracic/Lumbar Spine: thoracic and lumbar spine normal to inspection Skin General skin exam: no rashes or lesions noted Neuro General: patient oriented x3, gait normal, tone normal and moves all extremities Extrem General: Yes normal to inspection and Yes capillary refill normal Assessment & Plan Assessment & Plan (1) Hematoma of scrotum: Code(s): S30.22XA - Contusion of scrotum and testes, initial encounter Category: Medical (2) Testicular torsion: Code(s): N44.00 - Torsion of testis, unspecified Category: Medical Plan Prescription for Bactrim and oxycodone provided Medications: New sulfamethoxazole-trimethoprim 400-80 mg (Bactrim) Take 1 tablet daily 1 tab PO DAILY 7 days 7 tabs 0RF S30.22XA - Contusion of scrotum and testes, initial encounter Changed From oxycodone Partial Fill upon patient request. 5 mg PO Q8H 3 days PRN 8 tabs 0RF pain To oxycodone Partial Fill upon patient request. 5 mg PO Q8H 7 days PRN 14 tabs 0RF pain Patient Instructions: This note is constructed using voice recognition software. While every effort has been made to ensure accuracy gum rolling machine tender errors may have been included. Imaging studies, laboratory and physical exam results were discussed and reviewed in detail. No major barriers to patient understanding were identified. An opportunity to ask questions regarding the treatment plan was provided. All questions were answered. The patient expressed understanding and agreement with the above treatment plan. The patient is aware they should contact our office by phone for worsening of their current condition or the appearance of new urologic symptoms. Compliance is encouraged with any medications and followup testing that is ordered. It is a privilege to participate in the urologic care of your patient. If you have any questions or concerns regarding treatment for the above conditions, or other urologic issues, please do not hesitate to contact me. The office telephone contact is [phone]. Sincerely, Dr Meliton Mchugh MD, [facility] - Urology Compassionate Specialist Care for the Genitourinary System Coding Level of Care Code [employer] (56111) Diagnoses Hematoma of scrotum S30.22XA Testicular torsion N44.00
== END 2025-01-07 16:53 | disposition home or self-care (01) ==
LOC: HO.HUSH 15:57
PROVIDERS: Visit Provider Urology
DX: S30.22XA Contusion of scrotum and testes, initial encounter (principal); N44.00 Torsion of testis, unspecified
CPT/HCPCS: 99024

== ENCOUNTER 2025-01-24 14:58 | Outpatient (AMB) | payer MEDICAID, SELFPAY ==
--- NOTE | 2025-01-24 15:08 | MHC.OFFVIS ---
Intake Visit Reasons: testicular torsion follow up Intake Note: Patient is present for TESTICULAR TORSION F/U Urology Medication:NONE Antibiotic Allergy:NONE Blood Thinner:NONE Financial Cost Analyst Required: No Allergies No Known Allergies (No Known Allergies*) Allergy (Verified 01/24/25 15:09) HPI Comments Details: Zane is a pleasant [place] male. He is seen for the following urologic conditions - scrotal hematoma Everything has resolved well Area well healed Hematoma fully resolved Follow-up p.r.n. Underwent scrotal exploration with bilateral orchidopexy for right testicular torsion Significant postprocedure delayed hematoma PFSH Medical History Hypospadias Surgical History H/O wisdom tooth extraction Social History Alcohol intake: current Alcohol intake frequency: 0-2 drinks per day Alcohol type: hard liquor Comment: Dr. Franklin Patient Tobacco Use Status: Current everyday Tobacco user Substance Use Type: Marijuana Review of Systems Const Denies chills and Denies fever(s) Card Reports no additional complaints and Denies syncope Resp Denies cough GI Denies abdominal pain and Denies heartburn Reports as per HPI and Denies change in libido Neuro Denies syncope Psych Denies change in libido Endo Denies change in libido Physical Exam Const General: cooperative, healthy appearing, comfortable and no acute distress Orientation/consciousness: patient oriented x3 HEENT Face and sinus: Yes normal facial exam Mouth: moist mucous membranes Neck Neck: Yes normal visual inspection, Yes full ROM and Yes trachea midline Chest Chest palpation & inspection: normal inspection of the chest Resp Effort & Inspection: normal respiratory effort, able to speak in complete sentences and no respiratory distress GI Inspection: Yes normal to inspection Back/Spine/Pelvis Cervical Spine: normal cervical lordosis Thoracic/Lumbar Spine: thoracic and lumbar spine normal to inspection Skin General skin exam: no rashes or lesions noted Neuro General: patient oriented x3, gait normal, tone normal and moves all extremities Extrem General: Yes normal to inspection and Yes capillary refill normal Assessment & Plan Assessment & Plan (1) Testicular torsion: Code(s): N44.00 - Torsion of testis, unspecified Category: Medical Plan P.r.n. follow-up Patient Instructions: This note is constructed using voice recognition software. While every effort has been made to ensure accuracy skin fitter errors may have been included. Imaging studies, laboratory and physical exam results were discussed and reviewed in detail. No major barriers to patient understanding were identified. An opportunity to ask questions regarding the treatment plan was provided. All questions were answered. The patient expressed understanding and agreement with the above treatment plan. The patient is aware they should contact our office by phone for worsening of their current condition or the appearance of new urologic symptoms. Compliance is encouraged with any medications and followup testing that is ordered. It is a privilege to participate in the urologic care of your patient. If you have any questions or concerns regarding treatment for the above conditions, or other urologic issues, please do not hesitate to contact me. The office telephone contact is [phone]. Sincerely, Dr Meliton Mchugh MD, [facility] - Urology Compassionate Specialist Care for the Genitourinary System Coding Level of Care Code Est Pt Level 3 (73162) Diagnoses Testicular torsion N44.00
== END 2025-01-24 15:52 | disposition home or self-care (01) ==
LOC: HO.HUSH 14:59
PROVIDERS: Visit Provider Urology
DX: N44.00 Torsion of testis, unspecified (principal)
CPT/HCPCS: 99024

== ENCOUNTER → 2025-01-24 14:58 | Outpatient (BNVA) | payer OTHER, SELFPAY | PROVIDERS: Visit Provider Urology | DX: N44.00 Torsion of testis, unspecified (principal); Q54.9 Hypospadias, unspecified | CPT/HCPCS: 99212 ==

== ENCOUNTER 2025-04-08 23:22 | Emergency (ER) | payer OTHER, SELFPAY ==
[2025-04-08 23:33] VITALS: BP 118/65; PULSE 106; RESP 18; TEMP 38.6; O2SAT 95; BMI 25.3
[2025-04-09 00:26] LABS: Hematocrit 44.8 % (42.0-52.0); Hemoglobin 15.7 g/dl (14.0-18.0); Mean Corpuscular HGB Conc 35.0 g/dl (31.0-36.0); Mean Corpuscular Hemoglobin 29.0 pg (27.0-33.0); Mean Corpuscular Volume 82.7 fL (80.0-98.0); NRBC Abs Auto 0.000 X10*3/uL (0.0-0.012); NRBC Pct Auto 0.0 /100WBC (0.0-0.2); Platelet Count 170 X10*3/uL (160-400); Red Blood Count 5.42 X10*6/uL (4.60-5.80); White Blood Count 7.9 X10*3/uL (4.8-10.8)
[2025-04-09 00:39] LABS: Alanine Aminotransferase 19 U/L (0-40); Albumin Level 4.7 g/dL (3.5-5.0); Alkaline Phosphatase 58 U/L (39-117); Anion Gap 15 (12-20); Aspartate Amino Transferase 22 U/L (5-37); Blood Urea Nitrogen 11 mg/dL (9-16); Calcium 9.4 mg/dL (8.4-10.2); Carbon Dioxide 26 mmol/L (22-29); Chloride 102 mmol/L (96-108); Creatinine Clr Calc Pharmacy 118.9; Estimated Glomerular Filt Rate > 60; Magnesium 1.8 mg/dL (1.6-2.6); Potassium 3.8 mmol/L (3.3-5.1); Sodium 139 mmol/L (135-145); Total Protein 7.8 g/dL (6.5-8.0)
[2025-04-09 00:47] LABS: COVID-19 Test Positive (Negative); IDNOW Serial# 55D5AD1C; IDNOW Serial# 58CA691E; Influenza B2 Negative (Negative)
[2025-04-09 02:00] VITALS: BP 103/59; PULSE 89; RESP 18; TEMP 37.1; O2SAT 98
--- NOTE | 2025-04-09 02:18 | ED.GENADULT ---
HPI - General Adult General Chief complaint: Nausea/Vomiting/Diarrhea Stated complaint: General Medical Time Seen by Provider: 04/09/25 00:48 Source: patient Limitations: no limitations History of Present Illness ED Provider: Amber Sanches PA-C HPI narrative: 24-year-old male presents with nausea vomiting diarrhea since this morning. Associated generalized myalgias and fever. Denies preceding cough or cold symptoms. Denies sick contacts with similar symptoms. No recent travel out of the country, hospitalization or use of antibiotics. Denies abdominal pain. Related Data Previous Rx's ?Medication ?Instructions ?Recorded amoxicillin 875 mg-potassium 1 tab PO Q12H #20 tabs 07/03/22 clavulanate 125 mg tablet cephalexin 500 mg capsule 500 mg PO BID #14 caps 03/22/24 doxycycline hyclate 100 mg capsule 100 mg PO BID #14 caps 03/22/24 ibuprofen 600 mg tablet 600 mg PO TID PRN fever or pain 03/22/24 #14 tabs naproxen 500 mg tablet 500 mg PO BID PRN pain 7 days #14 12/27/24 tabs oxycodone 5 mg tablet 5 mg PO Q8H PRN pain 7 days #14 01/07/25 tabs sulfamethoxazole 400 1 tab PO DAILY 7 days #7 tabs 01/07/25 mg-trimethoprim 80 mg tablet (Bactrim) ondansetron 4 mg disintegrating 4 mg PO Q8H PRN nausea and 04/09/25 tablet vomiting #10 tabs Allergies Allergy/AdvReac Type Severity Reaction Status Date / Time No Known Allergies (No Known Allergy Verified 04/08/25 23:37 Allergies*) Review of Systems Review of Systems: Yes all other systems are reviewed and are negative Constitutional: Constitutional: Reports fatigue, Reports fever(s) and Reports malaise Cardiovascular: Cardiovascular: Denies chest pain and Denies dyspnea Respiratory: Respiratory: Denies cough and Denies dyspnea Gastrointestinal: Gastrointestinal: Denies abdominal pain, Reports diarrhea, Reports nausea and Reports vomiting Musculoskeletal: Musculoskeletal: Reports myalgias Endocrine: Endocrine: Reports fatigue PMFSH Past Medical History Attestation statement: The following information was validated with the patient. Medical History Hypospadias Surgical History H/O wisdom tooth extraction Social History Social History Alcohol intake: current Alcohol intake frequency: 0-2 drinks per day Alcohol type: hard liquor Comment: Dr. Franklin Patient Tobacco Use Status: Current everyday Tobacco user Substance Use Type: Marijuana Advance Directives: No Advance Directives Information Provided: Yes Physical Exam ED Vital Signs: Vital Signs - 24 hr 04/08/25 23:33 04/09/25 02:00 04/09/25 02:29 Temperature 101.5 F H 98.8 F 98.8 F Pulse Rate 106 H 89 89 Respiratory Rate 18 18 18 Blood Pressure 118/65 103/59 L 103/59 L Pulse Oximetry 95 98 98 Oxygen Delivery Method Room Air Room Air Room Air BMI result Body Mass Index 25.3 Const Other: Alert well-appearing Orientation/consciousness: patient oriented x3 Resp Effort & Inspection: normal respiratory effort Cardio Other: Normal peripheral perfusion GI Other: Soft nontender no guarding no distention Skin Other: Warm dry no rash Neuro General: patient oriented x3, gait normal, no focal motor deficits and CN's II-XI intact bilaterally Psych Other: Cooperative Medications Administered Discontinued Medications Generic Name Dose Route Start Last Admin Trade Name Freq PRN Reason Stop Dose Admin Acetaminophen 650 mg 04/09/25 00:26 04/09/25 00:29 Acetaminophen 325 Mg Tablet PO 04/09/25 00:27 650 mg ONCE ONE Administration Sodium Chloride 1,000 mls @ 999 mls/hr 04/09/25 01:00 04/09/25 02:00 Ns IV 04/09/25 02:00 0 mls/hr .Q1H1M SHANICE Infusion Acetaminophen 1,000 mg in 100 mls @ 400 mls/hr 04/09/25 00:50 04/09/25 01:11 Ofirmev IV 04/09/25 01:04 Not Given ONCE ONE Ketorolac Tromethamine 15 mg 04/09/25 00:50 04/09/25 01:18 Ketorolac Tromethamine 15 Mg/Ml Vial IVPUSH 04/09/25 00:51 15 mg ONCE ONE Administration Ondansetron HCl 4 mg 04/09/25 00:50 04/09/25 01:18 Ondansetron Hcl 4 Mg/2 Ml Vial IVPUSH 04/09/25 00:51 4 mg ONCE ONE Administration Medical Decision Making Medical Decision Making [facility] Narrative: 24-year-old male presents with nausea vomiting diarrhea since this morning. Associated generalized myalgias and fever. Denies preceding cough or cold symptoms. Denies sick contacts with similar symptoms. No recent travel out of the country, hospitalization or use of antibiotics. Denies abdominal pain. No chronic issues History: Per patient I have considered the following differential diagnoses: Viral gastroenteritis, C diff, traveler's diarrhea, diverticulitis Plan: This is likely viral gastroenteritis, the patient has no risk factors for traveler's diarrhea or C diff, his abdominal exam was benign, he does not warrant CT scan to rule out diverticulitis. We will provide symptomatic treatment, screening labs including viral panel ordered from triage. I have independently reviewed the following tests: Labs: No leukocytosis, not anemic, no electrolyte abnormality, COVID positive Differential Diagnosis Differential Diagnoses: The differential diagnosis associated with the presentation includes See medical decision-making Admission/Observation Consideration of admission/observation: Escalation of care including admission/observation considered Not applicable Lab Data [facility] Lab Attestation statement: I reviewed the patient's lab results. 04/09/25 00:18 04/09/25 00:18 Labs: Lab Results 04/09/25 Range/Units 00:18 WBC 7.9 (4.8-10.8) X10*3/uL RBC 5.42 (4.60-5.80) X10*6/uL Hgb 15.7 (14.0-18.0) g/dl Hct 44.8 (42.0-52.0) % MCV 82.7 (80.0-98.0) fL MCH 29.0 (27.0-33.0) pg MCHC 35.0 (31.0-36.0) g/dl RDW 12.8 (11.0-16.0) % Plt Count 170 (160-400) X10*3/uL MPV 9.8 (9.4-12.4) fL Absolute Nucleated RBC 0.000 (0.0-0.012) X10*3/uL Nucleated RBC % (auto) 0.0 (0.0-0.2) /100WBC Sodium 139 (135-145) mmol/L Potassium 3.8 (3.3-5.1) mmol/L Chloride 102 (96-108) mmol/L Carbon Dioxide 26 (22-29) mmol/L Anion Gap 15 (12-20) BUN 11 (9-16) mg/dL Creatinine 1.02 (0.5-1.4) mg/dL Estim Creat Clear Calc 118.9 Estimated GFR > 60 Random Glucose 99 (60-115) mg/dL Calcium 9.4 (8.4-10.2) mg/dL Magnesium 1.8 (1.6-2.6) mg/dL Total Bilirubin 0.3 (0.0-1.0) mg/dL AST 22 (5-37) U/L ALT 19 (0-40) U/L Alkaline Phosphatase 58 (39-117) U/L Total Protein 7.8 (6.5-8.0) g/dL Albumin 4.7 (3.5-5.0) g/dL COVID-19 (SAVANNA) Positive A (Negative) COVID-19 Clin Com See Note Influenza Type A (ROBERT) Negative (Negative) Influenza Type B (ROBERT) Negative (Negative) Influenza A & B Note See Note Discharge Plan Discharge Clinical Impression: COVID-19 Patient Disposition: Home, Self-Care Instructions: COVID-19 (Coronavirus Disease 2019) (ED) Additional Instructions: You were found to have COVID, this is why you are feeling so poorly. See home care instructions. You need to self isolate for 5 days. Alternate between [id number] ibuprofen and Tylenol for fever, headache and body ache. Uses Zofran as needed for nausea. Follow up with primary care as needed. Prescriptions: New ondansetron 4 mg tablet,disintegrating 4 mg PO Q8H PRN (Reason: nausea and vomiting) Qty: 10 0RF No Action amoxicillin-pot clavulanate 875-125 mg tablet 1 tab PO Q12H Qty: 20 0RF cephalexin 500 mg capsule 500 mg PO BID Qty: 14 0RF doxycycline hyclate 100 mg capsule 100 mg PO BID Qty: 14 0RF ibuprofen 600 mg tablet 600 mg PO TID PRN (Reason: fever or pain) Qty: 14 0RF naproxen 500 mg tablet 500 mg PO BID PRN (Reason: pain) 7 Days Qty: 14 0RF oxycodone 5 mg tablet 5 mg PO Q8H PRN (Reason: pain) 7 Days Qty: 14 0RF Rx Instructions: Partial Fill upon patient request. sulfamethoxazole-trimethoprim [Bactrim] 400-80 mg tablet 1 tab PO DAILY 7 Days Qty: 7 0RF Rx Instructions: Take 1 tablet daily Stand Alone Forms: Work/School Release Interventions: ED Discharge Assessment Last Done: 04/09/25 02:29 Discharge Date/Time: 04/09/25 02:29 Print Language: Faroese
[2025-04-09 02:29] VITALS: BP 103/59; PULSE 89; RESP 18; TEMP 37.1; O2SAT 98
== END 2025-04-09 02:29 | disposition home or self-care (01) ==
PROVIDERS: Emergency Provider Emergency Medicine
DX: U07.1 COVID-19 (principal); R11.2 Nausea with vomiting, unspecified; R19.7 Diarrhea, unspecified; M79.10 Myalgia, unspecified site; R50.9 Fever, unspecified
CPT/HCPCS: 80053; 83735; 85027; 87502; 87635; 96361; 96374; 96375; 99284; J1885; J2405

== ENCOUNTER 2025-07-28 05:07 | Emergency (ER) | payer SELFPAY ==
[2025-07-28 05:21] VITALS: BP 104/40; PULSE 96; RESP 20; TEMP 37.3; O2SAT 95; BMI 25.4
--- NOTE | 2025-07-28 05:22 | ED.GENADULT ---
HPI - General Adult General Chief complaint: Upper Respiratory Symptoms Stated complaint: Congestion Time Seen by Provider: 07/28/25 05:22 Source: patient Mode of arrival: ambulatory Limitations: no limitations History of Present Illness ED Provider: Dr. Ashby [facility] narrative: 24-year-old male history of testicular torsion presented hospital today for evaluation of eye pain headache fever not feeling well and fatigue. Patient stated that he has been having some nausea as well denies any diarrhea. He is also complaining of body aches. Related Data Previous Rx's ?Medication ?Instructions ?Recorded amoxicillin 875 mg-potassium 1 tab PO Q12H #20 tabs 07/03/22 clavulanate 125 mg tablet cephalexin 500 mg capsule 500 mg PO BID #14 caps 03/22/24 doxycycline hyclate 100 mg capsule 100 mg PO BID #14 caps 03/22/24 ibuprofen 600 mg tablet 600 mg PO TID PRN fever or pain 03/22/24 #14 tabs naproxen 500 mg tablet 500 mg PO BID PRN pain 7 days #14 12/27/24 tabs oxycodone 5 mg tablet 5 mg PO Q8H PRN pain 7 days #14 01/07/25 tabs sulfamethoxazole 400 1 tab PO DAILY 7 days #7 tabs 01/07/25 mg-trimethoprim 80 mg tablet (Bactrim) ondansetron 4 mg disintegrating 4 mg PO Q8H PRN nausea and 04/09/25 tablet vomiting #10 tabs acetaminophen 500 mg tablet 1,000 mg (2 x 500 mg) PO Q8H 10 07/28/25 days #60 tabs ibuprofen 400 mg tablet 400 mg PO Q8H PRN fever #60 tabs 07/28/25 ondansetron 4 mg disintegrating 4 mg PO Q8H PRN nausea and 07/28/25 tablet vomiting #14 tabs Allergies Allergy/AdvReac Type Severity Reaction Status Date / Time No Known Allergies (No Known Allergy Verified 07/28/25 05:23 Allergies*) Review of Systems Review of Systems: Pertinent review of systems as mentioned in [facility]. All other system otherwise negative. [facility] Past Medical History [facility] Narrative: Medical history as mentioned in HPI Medical History Hypospadias Surgical History H/O wisdom tooth extraction Social History Social History Alcohol intake: current Alcohol intake frequency: 0-2 drinks per day Alcohol type: hard liquor Comment: Dr. Franklin Patient Tobacco Use Status: Current everyday Tobacco user Substance Use Type: Marijuana Physical Exam ED Exam Exam: General: Pleasant, no distress, interacting appropriately Head: Normacephalic, atraumatic ENT: oral mucosa moist, neck supple, no tracheal deviation Cardiovascular: regular rate, regular rhythm, no murmurs, rubbing, gallops Respiratory: CTAB, no wheeze, rales, rhonchi Gastrointestinal: Soft, non distended, non tender, non guarding Neurological: Awake and alert, no facial droop noted Skin: Warm to touch consistent with possible fever Psychiatric: Appropriate mood and thoughts Vital Signs: Vital Signs - 24 hr 07/28/25 05:21 Temperature 99.1 F Pulse Rate 96 Respiratory Rate 20 Blood Pressure 104/40 L Pulse Oximetry 95 Oxygen Delivery Method Room Air BMI result Body Mass Index 25.4 Medications Administered Discontinued Medications Generic Name Dose Route Start Last Admin Trade Name Freq PRN Reason Stop Dose Admin Ibuprofen 600 mg 07/28/25 05:24 07/28/25 05:27 Ibuprofen 600 Mg Tablet PO 07/28/25 05:25 600 mg ONCE ONE Administration Ibuprofen 400 mg 07/28/25 05:31 07/28/25 05:41 Ibuprofen 400 Mg Tablet PO 07/28/25 05:32 Not Given ONCE ONE Ondansetron HCl 4 mg 07/28/25 05:31 07/28/25 05:54 Ondansetron Odt 4 Mg Tab.Rapdis TRANSLINGU 07/28/25 05:32 4 mg ONCE ONE Administration Medical Decision Making Medical Decision Making MDM Narrative: 24-year-old male presented hospital today for flu-like symptoms. Tested positive for flu A. He does have body aches. No sign of tachypnea hypoxia. Patient does feel warm to touch ibuprofen will be given to the patient. A dose of Zofran be given to the patient. We will plan to p.o. challenge the patient does time. Patient was able to tolerate p.o. crackers and water. Patient will be discharged home with a some Zofran. Tylenol and ibuprofen will be prescribed to the patient for symptom control. Encouraged the patient's to stay well hydrated. Return precautions given return to the ER if he has shortness of breath. Agrees and understands this plan. Differential Diagnosis Differential Diagnoses: The differential diagnosis associated with the presentation includes URI, fever, influenza Lab Data MDM Lab Attestation statement: I reviewed the patient's lab results. Labs: Lab Results 07/28/25 Range/Units 05:29 Influenza Type A (PCR) POSITIVE A (Negative) Influenza Type B (PCR) NEGATIVE (Negative) RSV RNA Qual (PCR) NEGATIVE (Negative) SARS-CoV-2 RNA (RT-PCR) NEGATIVE (Negative) Discharge Plan Discharge Clinical Impression: Influenza A Patient Disposition: Home, Self-Care Instructions: Influenza (ED) Prescriptions: New acetaminophen 500 mg tablet 1,000 mg PO Q8H 10 Days Qty: 60 0RF ibuprofen 400 mg tablet 400 mg PO Q8H PRN (Reason: fever) Qty: 60 0RF ondansetron 4 mg tablet,disintegrating 4 mg PO Q8H PRN (Reason: nausea and vomiting) Qty: 14 0RF No Action amoxicillin-pot clavulanate 875-125 mg tablet 1 tab PO Q12H Qty: 20 0RF cephalexin 500 mg capsule 500 mg PO BID Qty: 14 0RF doxycycline hyclate 100 mg capsule 100 mg PO BID Qty: 14 0RF ibuprofen 600 mg tablet 600 mg PO TID PRN (Reason: fever or pain) Qty: 14 0RF naproxen 500 mg tablet 500 mg PO BID PRN (Reason: pain) 7 Days Qty: 14 0RF ondansetron 4 mg tablet,disintegrating 4 mg PO Q8H PRN (Reason: nausea and vomiting) Qty: 10 0RF oxycodone 5 mg tablet 5 mg PO Q8H PRN (Reason: pain) 7 Days Qty: 14 0RF Rx Instructions: Partial Fill upon patient request. sulfamethoxazole-trimethoprim [Bactrim] 400-80 mg tablet 1 tab PO DAILY 7 Days Qty: 7 0RF Rx Instructions: Take 1 tablet daily Stand Alone Forms: Work/School Release Print Language: Kittitian
[2025-07-28 06:09] LABS: Resp Syncy Virus RNA Qual PCR NEGATIVE (Negative); SARS COV2 PCR INHOUSE NEGATIVE (Negative)
[2025-07-28 06:43] VITALS: BP 104/40; PULSE 96; RESP 20; TEMP 37.2; O2SAT 95
== END 2025-07-28 06:57 | disposition home or self-care (01) ==
PROVIDERS: Emergency Provider Student in an Organized Health Care Education/Training Program
DX: J10.1 Influenza due to other identified influenza virus with other respiratory manifestations (principal); H57.13 Ocular pain, bilateral; R11.0 Nausea; M79.10 Myalgia, unspecified site; Z03.818 Encounter for observation for suspected exposure to other biological agents ruled out; Z79.899 Other long term (current) drug therapy
CPT/HCPCS: 87637; 99283